=== PATIENT | female | born 1930 | race Caucasian/White ===

== ENCOUNTER 2016-11-10 12:28 | Observation (INO) | payer MEDICARE ==
--- NOTE | 2016-11-10 13:07 | CT ---
CT BRAIN WITHOUT CONTRAST: HISTORY: Altered mental status. senior care patient. Possible fall today. COMPARISON: None. TECHNIQUE: Multiple contiguous axial images were obtained in a CT of the brain without contrast. FINDINGS: The brain is normal in morphology and attenuation without focal lesions or confluent areas of infarc tion. There is no evidence of hydrocephalus, intracranial hemorrhage, or extraaxial fluid collectio ns. The calvarium and overlying soft tissues are unremarkable. The visualized paranasal sinuses and mas toid air cells are well aerated. IMPRESSION: No evidence of acute intracranial abnormality. POS: [facility]
--- NOTE | 2016-11-10 13:32 | RAD ---
PORTABLE CHEST 1 VIEW: Date: 11/10/16 Time: 1230 hours HISTORY: Altered mental status, weakness, possible fall. FINDINGS: Comparison made with exam of 11/24/14. The heart size is normal. The aorta is tortuous. No confluent areas of consolidation, pneumothorax, uzma pulmonary edema, or pleural effusions are seen. IMPRESSION: No acute process. POS: [facility]
[2016-11-10 13:38] LABS: Bilirubin Negative (Negative); Blood, Urine Moderate (Negative); Glucose, Urine (Dipstick) Negative (Negative); Ketone, Urine Negative (Negative)
[2016-11-10 13:39] LABS: Nitrite Negative (Negative); Protein, Urine (Dipstick) > or equal to 300 mg/dL (Neg-Trace); Urobilinogen 0.2 mg/dL (0.2-1.0)
[2016-11-10 13:40] LABS: #Monocytes 0.8 thou/uL (0.11-0.59); #Neutrophils 8.8 thou/uL (1.40-6.50); %Basophils 0.1 % (0.0-1.0); %Eosinophils 0.4 % (0.0-10.0); %Lymphocytes 9.6 % (21.0-51.0); %Monocytes 7.3 % (0.0-10.0); Hematocrit 46.6 % (36.0-47.0); Mean Platelet Volume 8.9 fL (7.4-10.4); Red Blood Cell (RBC) Count 4.85 mill/uL (4.20-5.40); White Blood Cell (WBC) Count 10.6 thou/uL (4.8-10.8)
[2016-11-10 13:52] LABS: Bacteria/HPF None Seen HPF (None Seen); Hyaline Casts/LPF 0-3 HYALINE CAST LPF (0-3 Hyaline); Squamous Epithelial 0-3 HPF (0-3)
[2016-11-10 14:02] LABS: ALT (SGPT) 10 U/L (8-55); AST (SGOT) 18 U/L (5-34); Alkaline Phosphatase 89 U/L (40-150); Anion Gap 14 mmol/L (10-20); BUN (Urea Nitrogen) 13 mg/dL (9.8-20.1); Bilirubin, Total 0.5 mg/dL (0.2-1.2); CK (CPK) 385 U/L (29-168); Calc. Creatinine Clearance 0 mL/min (70-130); Calcium 10.1 mg/dL (7.8-10.44); Carbon Dioxide 26 mmol/L (23-31); Chloride 101 mmol/L (98-107); Estimated GFR-MDRD 87; Globulin 3.1 g/dL (2.4-3.5); Lipase 30 U/L (8-78); Protein, Total 7.3 g/dL (6.0-8.3)
[2016-11-10 14:08] LABS: Troponin I 0.058 ng/mL (< 0.028)
[2016-11-10 17:14] VITALS: BMI 31.1
[2016-11-10] MEDS ORDERED: Acetaminophen 325 MG TAB PO PRN (17:22)
[2016-11-10] MEDS ORDERED: Ondansetron ODT 4 MG TAB SL PRN (17:22)
[2016-11-10] MEDS ORDERED: Ondansetron HCl/PF 4 MG/2 ML Vial IVP PRN ×2 (17:22→17:49)
[2016-11-10] MEDS ORDERED: HYDROcodone/Acetaminophen 5/325 mg Tablet PO PRN (17:49)
[2016-11-10] MEDS: Sodium Chloride 0.9% 1,000 ML IV SCH (19:23)
[2016-11-10] MEDS: cefTRIAXone\\ROCEPHIN 1 GM in Sodium Chloride 0.9% 100 ML IVPB SCH (19:24)
[2016-11-10 19:57] LABS: Troponin I 0.094 ng/mL (< 0.028)
[2016-11-10] MEDS: Famotidine 20 MG TAB PO SCH (20:55)
[2016-11-10] MEDS: TROSPIUM 20 MG TABLET PO SCH (20:55)
[2016-11-10] MEDS: Docusate 100 MG CAP PO SCH (20:55)
--- NOTE | 2016-11-11 00:26 | HP ---
CHIEF COMPLAINT: Weakness. HISTORY OF PRESENT ILLNESS: This is an 86-year-old pleasant lady, resident of assisted facility [facility] e into the hospital because of weakness. The patient had trouble getting out of the chair this a.m. and then EMS was called. She denies falls, reported the same thing happened to her last time when she was taken to the ED. The patient is oriented to place and person. No fever, no chills, no diar jose enrique, dysuria, no chest pain. PAST MEDICAL HISTORY: Significant for hypothyroidism, hypertension, dementia, deconditioning, hyper lipidemia, ejection fraction of 60%. MEDICATIONS: Please see MAR. ALLERGIES: None. PAST SURGICAL HISTORY: Significant for left hip replacement on 11/2014 and right hip arthroplasty i n the past. SOCIAL HISTORY: Denies smoking, drinking or doing recreational drugs. Lives in assisted facility. FAMILY HISTORY: Negative for diabetes and hypertension. She lives in [place], [place]. REVIEW OF SYSTEMS: Significant for no fever, no chills, no headache, no appetite and latencies. No cough, no chest pain, diarrhea, dysuria or polyuria, some history of mild dementia. No neck pain. PHYSICAL EXAMINATION: VITAL SIGNS: Blood pressure is 140/74, pulse 89, respirations 16, sats 94% on room air. GENERAL: Patient is lying in bed in no apparent distress. HEENT: Atraumatic, normocephalic. Pupils equally round, react to light. Extraocular movements int act. Mucous membranes moist. NECK: Supple. No JVD. CHEST: Breath sounds heard. No rales or rhonchi. HEART: S1, S2. No murmurs or gallops. ABDOMEN: Soft, nontender. EXTREMITIES: No cyanosis, clubbing, or edema. Distal pulses present. NEUROLOGICAL: Alert, awake, oriented. No cranial deficits, has no focal deficits. SKIN: Warm and dry. LABORATORY DATA: EKG shows normal sinus rhythm at 90, ST segments are normal. With the patient's l ab, chest x-ray is normal. CT head normal. WBC count is 10, hemoglobin is 15. CPK is 385. Lipase is at 30, troponin 0.05. Urine shows proteinuria and hematuria and WBCs 7-10, creatinine 0.6, pota ssium is 3.9. ASSESSMENT AND PLAN: 1. Weakness, possibly secondary to musculoskeletal in origin given the fact that CK is high. We wi ll repeat CK to stop Zetia to see if it statin-induced myopathy. Do physical therapy and follow the patient clinically. 2. Proteinuria. Outpatient follow up. 3. Renal hematuria and microscopic hematuria. Outpatient follow up with Nephrology. 4. Hypothyroidism. Check TSH T3, T4. We will also check ESR, CRP. 5. History of dementia, stable. 6. Hypertension, stable. 7. Deconditioning. Work with physical therapy. 8. Hyperlipidemia, stable with ejection fraction of 60%. A repeat echocardiogram was ordered. Las t echocardiogram was in 2015. SCDs for DVT prophylaxis. I will follow the labs and .
[2016-11-11 04:30] LABS: #Eosinphils 0.1 thou/uL (0.0-0.7); #Lymphocytes 1.9 thou/uL (1.20-3.40); #Monocytes 0.9 thou/uL (0.11-0.59); #Neutrophils 6.1 thou/uL (1.40-6.50); %Basophils 0.1 % (0.0-1.0); %Eosinophils 1.2 % (0.0-10.0); %Lymphocytes 21.4 % (21.0-51.0); %Monocytes 9.5 % (0.0-10.0); Hematocrit 43.6 % (36.0-47.0); Mean Platelet Volume 9.1 fL (7.4-10.4); Red Blood Cell (RBC) Count 4.47 mill/uL (4.20-5.40)
[2016-11-11 05:00] LABS: Anion Gap 13 mmol/L (10-20); BUN (Urea Nitrogen) 10 mg/dL (9.8-20.1); CK (CPK) 346 U/L (29-168); Calc. Creatinine Clearance 96 mL/min (70-130); Calcium 9.3 mg/dL (7.8-10.44); Carbon Dioxide 24 mmol/L (23-31); Chloride 106 mmol/L (98-107); Cholesterol 173 mg/dl (< 200 Desired); Estimated GFR-MDRD Greater than 90; LDL Cholesterol, Calculated 96 mg/dL
[2016-11-11] MEDS: TROSPIUM 20 MG TABLET PO SCH ×2 (09:15→20:16)
[2016-11-11] MEDS: Famotidine 20 MG TAB PO SCH ×2 (09:15→20:16)
[2016-11-11] MEDS: Docusate 100 MG CAP PO SCH ×2 (09:15→20:16)
--- NOTE | 2016-11-11 10:06 | PDOC.PN ---
- Subjective Encounter Start Date: 11/11/16 Encounter Start Time: 10:04 no chest pain feels a little stronger walking with pt nof/c no n/v - Objective MAR Reviewed: Yes Vital Signs & Weight: Vital Signs (12 hours) Temp Pulse Resp BP BP Pulse Ox 11/11/16 07:36 97.6 F 92 16 137/74 90 L 11/11/16 04:00 97.5 F L 95 18 146/71 H 92 L 11/10/16 23:52 97.7 F 71 20 141/73 H 94 L Weight Weight 192 lb 9.6 oz I&O: 11/10/16 11/11/16 11/12/16 06:59 06:59 06:59 Intake Total 1049 Output Total 400 Balance 649 Result Diagrams: 11/11/16 03:22 11/11/16 03:22 Phys Exam - Physical Examination Constitutional: NAD HEENT: moist MMs Neck: no nodes Respiratory: no rales Cardiovascular: no significant murmur Gastrointestinal: no distention Musculoskeletal: pulses present Neurological: moves all 4 limbs Psychiatric: A&O x 3 Dx/Plan (1) Elevated troponin Code(s): R74.8 - ABNORMAL LEVELS OF OTHER SERUM ENZYMES Status: Acute (2) Physical deconditioning Code(s): R53.81 - OTHER MALAISE Status: Acute (3) Diabetes mellitus Code(s): E11.9 - TYPE 2 DIABETES MELLITUS WITHOUT COMPLICATIONS Status: Acute (4) Hematuria Code(s): R31.9 - HEMATURIA, UNSPECIFIED Status: Acute (5) Hip fracture Code(s): S72.009A - FRACTURE OF UNSP PART OF NECK OF UNSP FEMUR, INIT Status: Acute (6) Dementia Code(s): F03.90 - UNSPECIFIED DEMENTIA WITHOUT BEHAVIORAL DISTURBANCE Status: Chronic (7) Dyslipidemia Code(s): E78.5 - HYPERLIPIDEMIA, UNSPECIFIED Status: Chronic (8) HTN (hypertension) Code(s): I10 - ESSENTIAL (PRIMARY) HYPERTENSION Status: Chronic (9) Hypothyroidism Code(s): E03.9 - HYPOTHYROIDISM, UNSPECIFIED Status: Chronic - Plan * . f/u card plan f/u ck level f/u echo f/u renal us
[2016-11-11 10:25] LABS: Anion Gap 15 mmol/L (10-20); BUN (Urea Nitrogen) 9 mg/dL (9.8-20.1); Calc. Creatinine Clearance 83 mL/min (70-130); Calcium 9.3 mg/dL (7.8-10.44); Carbon Dioxide 25 mmol/L (23-31); Chloride 102 mmol/L (98-107); Estimated GFR-MDRD 80; Magnesium 1.8 mg/dL (1.6-2.6); Phosphorus 2.6 mg/dL (2.3-4.7)
[2016-11-11 10:30] LABS: Troponin I 0.121 ng/mL (< 0.028)
--- NOTE | 2016-11-11 13:51 | CON ---
DATE OF CONSULTATION: 11/11/2016 REASON FOR CONSULTATION: Indeterminate troponin levels. HISTORY OF PRESENT ILLNESS: Ms. Kevin Su is an 86-year-old woman. She came to the hospital [facility] with generalized weakness. She lives in an assisted living facility of a local senior living. She has trouble getting up and around. PAST MEDICAL HISTORY: 1. History of hypothyroidism. 2. Hypertension. 3. Dementia. 4. Deconditioning. 5. Hyperlipidemia. MEDICATIONS PRIOR TO ADMISSION: 1. Verapamil long-acting 240 mg a day. 2. Zetia. 3. Potassium. 4. Vitamin D. SOCIAL HISTORY: No smoking or any drugs, no alcohol. PAST SURGICAL HISTORY: Previous hip replacement. FAMILY HISTORY: Negative for diabetes or hypertension. Lives in [facility]. REVIEW OF SYSTEMS: CONSTITUTIONAL: No significant weight gain or loss. VISION: No changes. HEARING: No changes. PULMONARY: No cough or wheezing. GASTROINTESTINAL: No nausea, vomiting, diarrhea. SKIN: No rashes. PHYSICAL EXAMINATION: GENERAL: It is a pleasant elderly woman. She is alert. She is oriented. She knows she is in [place], [place]. She knows she is in the hospital. She does not know the year or month. HEENT: Eyes; sclerae nonicteric. Mouth; mucous membranes moist. NECK: Supple, no lymphadenopathy. LUNGS: Clear, no wheezing, rales or rhonchi. CARDIAC: Normal S1, normal S2. There is no murmur, rub or gallop. ABDOMEN: Soft, nontender, no hepatosplenomegaly. EXTREMITIES: Warm, dry, no clubbing, cyanosis or edema. She has good posterior tibial pulses bilat erally. EKG; normal sinus rhythm, Q-wave in lead III and AVF. PERTINENT LABORATORY: The troponin level was in the indeterminate range with a peak of 0.12. Other laboratory; hemoglobin was 14, WBCs 9, potassium 3.8, creatinine 0.7, cholesterol 173, LDL 63. Urinalysis shows moderate blood, 11-20 red cells, 7-10 white cells. ASSESSMENT: 1. Generalized weakness. 2. Indeterminate troponin level. 3. No acute changes on EKG. 4. Echo within normal limits. PLAN: 1. Stress testing to risk stratify. 2. We will change from verapamil to low dose beta blockers. Consider adding amlodipine if needed. Probably the patient would probably do better on beta petra as opposed to the current dose of alicia apamil, especially that dose. She does have some evidence of diastolic dysfunction on echocardiogra m, verapamil is not the ideal agent in that situation.
[2016-11-11] MEDS ORDERED: ALPRAZolam 0.25 MG TAB PO SCH (14:45)
[2016-11-11] MEDS: Acetaminophen 325 MG TAB PO PRN (16:33)
[2016-11-11] MEDS: Sodium Chloride 0.9% 1,000 ML IV SCH (16:34)
[2016-11-11 16:47] LABS: Troponin I 0.082 ng/mL (< 0.028)
[2016-11-11] MEDS: cefTRIAXone\\ROCEPHIN 1 GM in Sodium Chloride 0.9% 100 ML IVPB SCH (20:15)
[2016-11-12 05:23] LABS: #Eosinphils 0.3 thou/uL (0.0-0.7); #Lymphocytes 1.5 thou/uL (1.20-3.40); #Monocytes 0.8 thou/uL (0.11-0.59); #Neutrophils 5.4 thou/uL (1.40-6.50); %Basophils 0.4 % (0.0-1.0); %Eosinophils 3.9 % (0.0-10.0); Hematocrit 44.8 % (36.0-47.0); White Blood Cell (WBC) Count 8.1 thou/uL (4.8-10.8)
[2016-11-12] MEDS: Acetaminophen 325 MG TAB PO PRN (05:35)
[2016-11-12] MEDS: Famotidine 20 MG TAB PO SCH (10:34)
[2016-11-12] MEDS: Sodium Chloride 0.9% 1,000 ML IV SCH (10:34)
[2016-11-12] MEDS: Docusate 100 MG CAP PO SCH (10:34)
[2016-11-12] MEDS: TROSPIUM 20 MG TABLET PO SCH (10:34)
--- NOTE | 2016-11-12 15:28 | NM ---
CARDIAC SPECT: CLINICAL HISTORY: 86-year-old female with chest pain, hypertension, and dyslipidemia. TECHNIQUE: A myocardial perfusion scan was performed using the single isotope two day protocol with 30 mCi tech netium-99m sestamibi injected intravenously for both stress and rest images. Pharmacologic stress wi th Adenosine was monitored and interpreted by Lakshmi Romero NP. FINDINGS: Homogeneous tracer distribution is seen in the myocardial segments on stress and rest images without fixed or reversible defects. GATED SPECT LVEF: 73%. WALL MOTION EXAM: Normal. IMPRESSION: Normal myocardial perfusion scan. POS: [facility]
[2016-11-12 15:42] VITALS: BP 120/53; TEMP 98.1
[2016-11-12] MEDS ORDERED: ADENOSINE 60 MG/20 ML VIAL ONE (16:19)
--- NOTE | 2016-11-12 18:43 | DIS ---
DATE OF ADMISSION: 11/10/2016 DATE OF DISCHARGE: 11/12/2016 DISCHARGE DISPOSITION: Home. FOLLOWUP: 1. Follow up with primary care physician, Dr. Neal in 1 week. 2. Fall precaution was emphasized. 3. Follow up with Cardiology, Dr. Taylor in 3-4 weeks. INPATIENT CONSULTANTS: Cardiology, Dr. Taylor The patient was seen and examined on the day of discharge. Denies any new complaints. No chest key n, shortness of breath, or palpitations reported. BRIEF HOSPITAL COURSE: The patient is an 86-year-old female with hypertension, hypothyroidism, and dementia, who presented to the hospital with generalized weakness with difficulty getting out of a c hair. Please refer to the history and physical dated 11/10/2016 for further details. The patient was admitted to the hospital with a diagnosis of generalized weakness. She was found to have indeterminate troponins. She was seen by Cardiology, Dr. Taylor. She underwent a Cardiolite stress test that was negative for reversible ischemia. No wall motion abnormalities were seen. An echocardiogram was performed that showed left ventricular ejection fraction of 55-60% with mild tric uspid regurgitation and mildly elevated pulmonary artery pressure. Verapamil has been discontinued. She has been started on low dose Bystolic. Initially, there was a concern for UTI; however, urine cultures were essentially negative. For this reason, antibiotics have been discontinued. She was also evaluated by physical therapy during the hospital stay. The patient has been cleared by Cardio logy for discharge. Low dose aspirin has been added per Cardiology recommendation. FINAL DIAGNOSES: 1. Generalized weakness, multifactorial. 2. Indeterminate cardiac enzymes. The patient had a negative Cardiolite stress test. 3. Hypertension. Verapamil has been changed to Bystolic. 4. Depression without any suicidal ideation. 5. Dementia. 6. Hyperlipidemia. 7. Hypothyroidism in the past. Her TSH and free T4 were in normal range. 8. Degenerative joint disease. 9. Physical deconditioning. 10. Chronic kidney disease stage 2. 11. Obesity with a BMI of 31.1. 12. Elevated CK. Plan of care was discussed with the patient. The patient and the family at the bedside, they stated understanding.
[2016-11-13] MEDS ORDERED: Nebivolol HCl 5 MG TAB PO SCH (09:00)
== END 2016-11-12 17:58 | disposition home or self-care (01) ==
LOC: ERS 12:28 → 2SW 15:21
PROVIDERS: ADMIT Internal Medicine; ATTEND Internal Medicine
DX: R53.1 Weakness (principal); F32.9 Major depressive disorder, single episode, unspecified; F03.90 Unspecified dementia, unspecified severity, without behavioral disturbance, psychotic disturbance, mood disturbance, and anxiety; E78.5 Hyperlipidemia, unspecified; E03.9 Hypothyroidism, unspecified; M19.90 Unspecified osteoarthritis, unspecified site; I12.9 Hypertensive chronic kidney disease with stage 1 through stage 4 chronic kidney disease, or unspecified chronic kidney disease; N18.2 Chronic kidney disease, stage 2 (mild); E66.9 Obesity, unspecified; R74.8 Abnormal levels of other serum enzymes; R80.9 Proteinuria, unspecified; R31.29 Other microscopic hematuria; Z79.82 Long term (current) use of aspirin; Z79.899 Other long term (current) drug therapy; Z96.642 Presence of left artificial hip joint; Z68.31 Body mass index [BMI] 31.0-31.9, adult
CPT/HCPCS: 70450; 71010; 78452; 80048 ×2; 80061; 82550 ×3; 82553; 83690; 83735; 84100; 84439; 84484 ×4; 85025 ×2; 85652; 86140; 87086; 93005; 93017; 93306; 94760 ×2; 96361 ×3; 96365; 96366; 97116 ×2; 97139; 97530; 99285; A9500; G0378; G8978; G8979; 36415; 80053; 81003; 81015; 84443; J0153; J0696; J7050

== ENCOUNTER 2017-04-28 12:32 | Outpatient (CLI) | payer MEDICARE ==
--- NOTE | 2017-04-28 13:19 | RAD ---
LUMBAR SPINE FOUR VIEWS INCLUDING FLEXION AND EXTENSION LATERAL VIEWS: History: 87-year-old female with low back pain for the past four weeks, secondary to a fall. FINDINGS: Exam includes standing flexion and extension lateral views. There is a transitional vertebra at the lumbosacral level where the partially developed S1-2 disc. Th ere is approximately 1.1 cm anterolisthesis of L4 on L5 which does not appear significantly changed b etween flexion and extension. There is marked narrowing of L3-4, L4-5, and L5-S1 discs. There is soha re vertical height loss of the T12 vertebral body as well as additionally some vertical height loss o f T11 and T10. No evidence for focal bone lesion. Bilateral total hip replacement. Heterogeneous bony demineralization. IMPRESSION: Anterolisthesis at L4-5 without significant abnormal translation between flexion and extension. Sever e spondylosis. Transitional vertebrae at the lumbosacral level with a partially developed S1-2 disc. Marked vertical height loss at T12 and less marked vertical height loss of T10 and T11. No focal bone lesion. Bony demineralization. POS: [facility]
== END 2017-04-28 12:33 | disposition home or self-care (01) ==
LOC: SCSRAD 12:32
PROVIDERS: ATTEND Family Medicine
DX: M54.5 Low back pain (principal); M47.896 Other spondylosis, lumbar region; M43.16 Spondylolisthesis, lumbar region
CPT/HCPCS: 72110

== ENCOUNTER 2018-01-12 22:21 | Emergency (ER) | payer MEDICARE | END 2018-01-12 23:48 | LOC: ERS 22:21 | DX: T19.2XXA Foreign body in vulva and vagina, initial encounter (principal); E87.6 Hypokalemia; E03.9 Hypothyroidism, unspecified; I10 Essential (primary) hypertension; E78.5 Hyperlipidemia, unspecified; F32.9 Major depressive disorder, single episode, unspecified; Z79.899 Other long term (current) drug therapy; Z79.82 Long term (current) use of aspirin | CPT/HCPCS: 99284 ==

== ENCOUNTER 2019-03-01 02:52 | Emergency (ER) | payer MEDICARE ==
--- NOTE | 2019-03-01 10:33 | CT ---
PRELIMINARY REPORT/[facility]/EMERGENCY AFTER HOURS PROCEDURE EXAM: CT Head Without Intravenous Contrast. CLINICAL HISTORY: ER 1...MECHANICAL FALL; HIT HEAD. KNOT ON FOREHEAD. BLEEDING CONTROLLED. HX DEMENTIA. TECHNIQUE: Axial computed tomography images of the head/brain without intravenous contrast. COMPARISON: None provided. FINDINGS: BRAIN: No acute intraparenchymal hemorrhage. No mass lesion. No CT evidence for acute territorial inf arct. No midline shift or extra-axial collection. Hypodensity of the white matter likely represents chronic microvascular ischemic disease. Focal hypodensity in the left caudate may represent a chronic lacunar infarct. VENTRICLES: No hydrocephalus. Volume loss. SINUSES AND MASTOIDS: Mild mucosal thickening of the right maxillary sinus. SOFT TISSUES: Extracranial soft tissue hematoma overlying the right frontal bone. BONES: No acute skull fracture. IMPRESSION: Chronic parenchymal changes. No acute intracranial abnormality. Extracranial soft tissue hematoma overlying the right frontal bone. ELECTRONICALLY SIGNED BY: Nikki Santoro MD Mar 01, 2019 3:53:04 AM PASTING MACHINE OFFBEARER This report is intended for review by the ordering physician only, in accordance of law. If you recei ve this report in error, please call [facility] at [phone]. FINAL REPORT EMERGENCY AFTER HOURS CT HEAD: I agree with preliminary report given by Dr. Nikki Santoro of [facility]. Transcribed Date/Time: 03/01/2019 10:50 AM
== END 2019-03-01 05:26 ==
LOC: ERS 02:52
DX: S00.83XA Contusion of other part of head, initial encounter (principal); I10 Essential (primary) hypertension; E03.9 Hypothyroidism, unspecified; F32.9 Major depressive disorder, single episode, unspecified; Z79.899 Other long term (current) drug therapy; W18.30XA Fall on same level, unspecified, initial encounter
CPT/HCPCS: 70450